=== PATIENT | female | born 1985 | race Caucasian/White ===

== ENCOUNTER 2021-04-24 03:19 | Emergency (ER) | payer OTHER ==
[~2021-04-24] VITALS: Ht 157.5 cm; Wt 76.4 kg
--- NOTE | 2021-04-24 03:41 | RAD ---
XR CHEST 1V INDICATION: left side chest pain with short of air times 1 week COMPARISON STUDY: None. FINDINGS: Lungs: Normal lung volume. No pulmonary mass or consolidation. The tracheobronchial tree and hilar st ructures are normal. Pleura: No pleural effusion or pneumothorax. Heart and Mediastinum: The cardiomediastinal silhouette is normal. The great vessels of the thorax ar e normal. Bones and Soft Tissues: The bones and soft tissues are within normal limits. IMPRESSION: No acute cardiopulmonary process. Electronically signed by: Dane Newman MD (04/24/2021 3:38 AM) [facility]
--- NOTE | 2021-04-24 03:56 | PHYS DOC ---
Past History Past Surgical History: , Other Additional Past Surgical Histo: R CARPAL TUNNEL Alcohol Use: Occasionally Adult General Chief Complaint Chief Complaint: CHEST PAIN HPI HPI Patient is an otherwise healthy 36-year-old female with a past medical history significant for anxiety, who presents with a chief complaint of chest pain that has been going on over a week, intermittently, over her whole chest, 4 out of 10 at its worst, that comes and goes without an identifiable aggravating factor. States she has been to 3 other emergency departments over the last week and has been evaluated but no cause has been found. Denies any recent travels, traumas, fevers, shortness of breath, dyspnea on exertion, orthopnea, PND or edema. Denies any Covid/flu/cold symptoms. Denies any abdominal pain, nausea, vomiting, diarrhea, dysuria, hematuria or blood in the stool. Denies any history of STIs, vaginal bleeding or vaginal discharge. Denies any alcohol or drug use. Denies any familial cardiac history at her age. Denies any history of VTE. Review of Systems Review of Systems Review of systems otherwise unremarkable except noted in HPI Allergies Allergies Allergies Coded Allergies Type Severity Reaction Last Updated Verified Penicillins Allergy Unknown 04/24/21 Yes Physical Exam Physical Exam Constitutional: Well developed, well nourished, no acute distress, non-toxic appearance. [] HENT: Normocephalic, atraumatic, bilateral external ears normal, oropharynx moist, no oral exudates, nose normal. [] Eyes: conjunctiva normal, no discharge. [] Neck: Normal range of motion, no tenderness, supple, no stridor. [] Cardiovascular:Heart rate regular rhythm, no murmur [] Lungs & Thorax: Bilateral breath sounds clear to auscultation [] Abdomen: soft, no tenderness, no masses, no pulsatile masses. [] Skin: Warm, dry, no erythema, no rash. [] Back: no CVA tenderness. [] Extremities: No tenderness, no cyanosis, no clubbing, ROM intact, no edema. [] Neurologic: Alert and oriented X 3, no focal deficits noted. [] Psychologic: Affect normal, judgement normal, mood anxious. [] Current Patient Data Vital Signs Vital Signs Date Time Temp Pulse Resp B/P (MAP) Pulse Ox O2 Delivery O2 Flow Rate FiO2 12/12/21 03:40 97.6 79 18 127/63 84 79 Room Air EKG EKG [] Radiology/Procedures Radiology/Procedures [] Heart Score C/O Chest Pain: Yes HEART Score for Chest Pain: HEART Score for Chest Pain Response (Comments) Value History Slighlty/Non-Suspicious 0 ECG Normal 0 Age < 45 0 Risk Factors No Risk Factors 0 Troponin < Normal Limit 0 Total 0 Risk Factors: Risk Factors: DM, Current or recent (<one month) smoker, HTN, HLP, family history of CAD, obesity. Risk Scores: Risk Factors: DM, Current or recent (<one month) smoker, HTN, HLP, family history of CAD, obesity. Course & Med Decision Making Course & Med Decision Making Patient is a 36-year-old female presents with chest pain Vital signs normal. Physical exam noted above. Heart score 0. EKG with a rate of 79, QRS of 86, QTc of 421, no STEMI. Normal troponin. Normal chest x-ray. Negative . Patient asymptomatic in the ED. Patient states that she does have history of anxiety. States she has been to 3 other emergency departments with similar work-ups in the movement found. Discussed all findings with patient and gave reassurance. Advised that even though it does not appear that there is an emergency going on currently that does not mean it there is not something going on may be cardiac maybe not. Advised to follow-up as soon as possible with her primary care physician for continued evaluation and treatment. Gave strict return precautions to the ED. Patient grateful, verbalized understanding and agreed with plan of discharge. [] Dragon Disclaimer Dragon Disclaimer This electronic medical record was generated, in whole or in part, using a voice recognition dictation system. Departure Departure: Impression: Primary Impression: Chest pain Additional Impression: Anxiety Disposition: 01 HOME / SELF CARE / HOMELESS Condition: GOOD Referrals: PCP,NO (PCP) MINESH HOLLIDAY Patient Instructions: Anxiety and Panic Attacks, Chest Pain (Nonspecific) Additional Instructions: Thank you for coming into the emergency department tonight and allowing us to take care of you. Please read the attached information carefully to go back over some of the things we discussed. As we discussed, although your work-up today was reassuring that nothing was going on currently that does not mean there is not something going on. As we discussed it may be related to your heart but it may not be as well and is very important that you follow-up with your primary care physician as soon as possible to discuss your many ED visits and discuss need for further evaluation and treatment. Please come back to the emergency department with new or concerning symptoms as we discussed. Problem Qualifiers BJ SCHULZ MD Apr 24, 2021 03:56
[2021-04-24] MEDS ORDERED: diazePAM 5 MG TABLET. PO ONE (04:00)
[2021-04-24 04:03] VITALS: BP 133/76
--- NOTE | 2021-04-24 05:53 | EKG ---
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
== END 2021-04-24 04:50 | disposition home or self-care (01) ==
LOC: ER 03:19
DX: R07.89 Other chest pain (principal); F41.9 Anxiety disorder, unspecified; Z88.0 Allergy status to penicillin
CPT/HCPCS: 36415; 71045; 81025; 84484; 93005; 99285